=== PATIENT | female | born 1980 | race Caucasian/White ===

== ENCOUNTER 2018-01-12 08:03 | Day surgery (SDC) | payer BC ==
[~2018-01-12 08:03] MED LIST: Sodium Chloride 0.9% 10 ML Syringe FLUSH PRN; Sodium Chloride 0.9% 2.5 ML Syringe FLUSH PRN; ceFAZolin 2 GM in Premix Bag 1 BAG IV ONE
[2018-01-12] MEDS ORDERED: Scopolamine 1.5 MG Transdermal Patch TRDERM PRN (09:38)
--- NOTE | 2018-01-12 09:38 | PCM.PREANE ---
Preanesthetic Assessment - Anesthesia/Transfusion/Family Hx Other Type of Anesthesia Reaction Comment: "N&V after lap lydia" Family History of Anesthesia Reaction: No Transfusion History: No Prior Transfusion(s) Intubation History: Unknown - Review of Systems General: No Symptoms Pulmonary: No Symptoms Cardiovascular: No Symptoms Gastrointestinal: No Symptoms Neurological: No Symptoms Other: Reports: None - Physical Assessment NPO Status Date: 01/11/18 NPO Status Time: 21:00 O2 Sat by Pulse Oximetry: 98 Respiratory Rate: 16 Vital Signs: Last Vital Signs Temp 36.6 C 01/12/18 09:00 Pulse 68 01/12/18 09:00 Resp 16 01/12/18 09:00 BP 113/68 01/12/18 09:00 Pulse Ox 98 01/12/18 09:00 Height: 1.62 m Weight: 82.554 kg ASA Class: 2 Mental Status: Alert & Oriented x3 Airway Class: Mallampati = 2 Dentition: Reports: Normal Dentition Thyro-Mental Finger Breadths: 3 Mouth Opening Finger Breadths: 2 ROM/Head Extension: Full Lungs: Clear to Auscultation, Normal Respiratory Effort Cardiovascular: Regular Rate, Regular Rhythm - Allergies Allergies/Adverse Reactions: Allergies Allergy/AdvReac Type Severity Reaction Status Date / Time No Known Allergies Allergy Verified 01/07/18 13:06 - Blood Blood Available: No - Anesthesia Plan Pre-Op Medication Ordered: None - Acknowledgements Anesthesia Type Planned: General Anesthesia Pt an Appropriate Candidate for the Planned Anesthesia: Yes Alternatives and Risks of Anesthesia Discussed w Pt/Guardian: Yes Pt/Guardian Understands and Agrees with Anesthesia Plan: Yes PreAnesthesia Questionnaire HEENT History: Reports: Other (See Below) Other HEENT History: wears glasses Cardiovascular History: Reports: Other (See Below) Other Cardiovascular History: HTN in the past before loosing weight Gastrointestinal History: Reports: GERD, Other (See Below) Other Gastrointestinal History: occasional heartburn Genitourinary History: Reports: None [employer]ING [employer] History: Reports: Polycystic Ovaries, Neurological History: Reports: Concussion Psychiatric History: Reports: Anxiety, Depression Endocrine/Metabolic History: Reports: Obesity/BMI 30+ - Past Surgical History Head Surgeries/Procedures: Reports: None GI Surgical History: Reports: Bariatric Procedure, Cholecystectomy, Other (See Below) Other GI Surgeries/Procedures: gastric sleeve Female Surgical History: Reports: Other (See Below) Other Female Surgeries/Procedures: ESSURE - SUBSTANCE USE Smoking Status *Q: Never Smoker Recreational Drug Use History: No - HOME MEDS Home Medications: Home Meds Acetaminophen [Tylenol] 1 - 2 tab PO ASDIRECTED PRN 01/07/18 [History] Omeprazole 20 mg PO ASDIRECTED PRN 01/07/18 [History] Vilazodone Hydrochloride [Viibryd] 40 mg PO DAILY 01/07/18 [History] busPIRone [Buspar] 19 mg PO BID 01/07/18 [History] - CURRENT (IN HOUSE) MEDS Current Meds: Current Medications Lactated Ringer's (Ringers, Lactated) 1,000 mls @ 125 mls/hr IV ASDIRECTED VICENTE Sodium Chloride (Saline Flush) 10 ml FLUSH ASDIRECTED PRN PRN Reason: Keep Vein Open Sodium Chloride (Saline Flush) 2.5 ml FLUSH ASDIRECTED PRN PRN Reason: Keep Vein Open Discontinued Medications Cefazolin Sodium/Dextrose 2 gm (/ Premix) 50 mls @ 100 mls/hr IV ONETIME ONE Stop: 01/12/18 05:29
[2018-01-12] MEDS ORDERED: fentaNYL 250 MCG/5 ML SDV ONE (09:40)
[2018-01-12] MEDS ORDERED: Lidocaine 2% 5 ML SDV ONE (09:40)
[2018-01-12] MEDS ORDERED: Propofol 200 MG/20 ML SDV ONE ×2 (09:40→15:09)
[2018-01-12] MEDS ORDERED: fentaNYL 100 MCG/2 ML SDV ONE ×2 (09:40→15:18)
[2018-01-12] MEDS ORDERED: Midazolam 1 MG/ML 2 ML SDV ONE (09:40)
[2018-01-12] MEDS ORDERED: Lactated Ringers 1,000 ML IV SCH (09:45)
[2018-01-12] MEDS ORDERED: Ketorolac 30 MG/ML SDV ONE (09:46)
[2018-01-12] MEDS ORDERED: Ondansetron 4 MG/2 ML SDV ONE (09:46)
[2018-01-12] MEDS ORDERED: Neostigmine Methylsulfate 1 MG/ML 5 ML Syringe ONE (09:46)
[2018-01-12] MEDS ORDERED: Rocuronium 10 MG/ML 10 ML Syringe ONE (09:46)
[2018-01-12] MEDS ORDERED: Glycopyrrolate 0.2 MG/ML SDV ONE (09:46)
[2018-01-12] MEDS ORDERED: Methylene Blue 50 MG/10 ML Ampule ONE (10:51)
[2018-01-12] MEDS ORDERED: Bupivacaine 0.25% 10 ML SDV ONE (10:51)
[2018-01-12] MEDS ORDERED: Fluorescein 5 ML Vial ONE (14:37)
[2018-01-12] MEDS ORDERED: Sugammadex Sodium 200 MG/2 ML VIAL ONE (14:37)
[2018-01-12] MEDS ORDERED: HYDROmorphone 2 MG/ML Syringe IVPUSH ONE (14:57)
[2018-01-12] MEDS ORDERED: fentaNYL 100 MCG/2 ML SDV IVPUSH PRN (14:57)
[2018-01-12] MEDS ORDERED: Furosemide 40 MG/4 ML VIAL ONE (14:59)
--- NOTE | 2018-01-12 16:10 | PCM.OPNOTE ---
- General Post-Op/Procedure Note Date of Surgery/Procedure: 01/12/18 Operative Procedure(s): LAVH/bilateral salpingectomy/cystoscopy Findings: 8-10 week uterus , boggy. Essure coils in fallopian tubes/cornua. Normal appearing ovaries. Bilateral patent ureters Pre Op Diagnosis: Menorrhagia. Dysmenorrhea Post-Op Diagnosis: Same Anesthesia Technique: General ET Tube Primary Surgeon: Laura Ochoa Marine Chronometer Assembler: Selena Ramires Pathology: uterus, cervix, bilateral fallopian tubes with essure coils Fluid Replacement, Intraop: 2,000 EBL in mLs: 100 Complications: none known Condition: Good Free Text/Narrative:: Dictation [id number]
[2018-01-12] MEDS ORDERED: Ondansetron 4 MG/2 ML SDV IVPUSH PRN (16:11)
[2018-01-12] MEDS ORDERED: Ketorolac 30 MG/ML SDV IVPUSH PRN (16:11)
[2018-01-12] MEDS ORDERED: Acetaminophen/oxyCODONE 325-5 MG Tab PO PRN ×2 (16:11)
[2018-01-12] MEDS ORDERED: Aluminum Hydroxide/Magnesium Hydroxide/Simethicone Susp 30 ML Cup PO PRN (16:11)
[2018-01-12] MEDS ORDERED: Ketorolac 30 MG/ML SDV IVPUSH ONE (16:11)
[2018-01-12] MEDS ORDERED: Promethazine 25 MG/ML SDV IM PRN (16:11)
[2018-01-12] MEDS ORDERED: Morphine 4 MG/ML Syringe IVPUSH PRN (16:11)
--- NOTE | 2018-01-12 17:04 | PCM.POSTAN ---
POST ANESTHESIA ASSESSMENT - MENTAL STATUS Mental Status: Alert, Oriented - VITAL SIGNS Pulse Rate: 69 SaO2: 98 (Room Air ) Resp Rate: 19 Blood Pressure: 133/79 - RESPIRATORY Respiratory Status: Respiratory Rate WNL, Airway Patent, O2 Saturation Stable - CARDIOVASCULAR CV Status: Pulse Rate WNL, Blood Pressure Stable - GASTROINTESTINAL GI Status: No Symptoms - PAIN Pain Score: 3 - POST OP HYDRATION Hydration Status: Adequate & Stable - OBSERVATIONS Free Text/Narrative:: Stable and comfortable SaO2 98 to 100 on room past 15 minutes May have supplemental Oxygen and SaO2 monitoring on nursing unit if needed
[2018-01-12] MEDS: Docusate Sodium 100 MG Cap PO SCH (20:18)
--- NOTE | 2018-01-12 20:48 | OR ---
SURGEON: Laura Ochoa M.D. DATE OF PROCEDURE: 01/12/2018 PREOPERATIVE DIAGNOSES: 1. Menorrhagia. 2. Dysmenorrhea. POSTOPERATIVE DIAGNOSES: 1. Menorrhagia. 2. Dysmenorrhea. PROCEDURES: Laparoscopic-assisted vaginal hysterectomy, bilateral salpingectomy, cystoscopy. LOGISTICS OPERATIONS DIRECTOR: Selena Ramires M.D. ANESTHESIA: General endotracheal anesthesia. ESTIMATED BLOOD LOSS: 100 mL. FLUIDS: 2000 mL of crystalloid. COMPLICATIONS: None known. FINDINGS: Approximately 8 to 10 week size boggy uterus. Normal-appearing ovaries. Bilateral patent ureters. Essure coils within fallopian tubes. DISPOSITION: The patient to PACU. SPECIMENS: Pathology. PROCEDURE IN DETAIL: Kayla is a 37-year-old female, who has ongoing difficulties with menorrhagia. She no longer desires to have to use hormone therapy in order to control her symptoms. She is most interested in pursuing definitive surgical intervention. The risks of the procedure were discussed. Proper consent obtained. We opted to do bilateral salpingectomies at the time of hysterectomy. Given she still has Essure coils in place for her permanent control, we will ensure removal of the coils completely at the time of the procedure. The patient was taken to the operating room where she underwent general anesthesia, was placed in modified dorsal lithotomy position, prepped and draped in the usual aseptic manner in the usual sterile fashion. SCDs to lower extremities. Hall to gravity. Received Ancef prophylactically. Time-out was performed. After being prepped and draped in sterile fashion, speculum was introduced into vagina. The anterior lip of cervix was grasped with an Allis clamp and uterine HUMI manipulator was gently introduced into the uterine cavity. The balloon was insufflated. All vaginal instruments were removed except for the Daksha manipulator. Gloves were now changed. Attention turned abdominally. Infraumbilically, 0.25% Marcaine was utilized to anesthetize the region. Please see total amount of local dispensed in nurse's note. Infraumbilical midline 5 mm incision was created, anterior abdominal wall tented upward. A Veress needle was gently introduced. Saline hanging drop test was performed and pneumoperitoneum was achieved. The Veress needle was removed. A 5 mm trocar was introduced. Laparoscope was introduced. Peritoneal contents were identified. The right and left lower quadrants now had trocars placed under direct visualization after prepping the region with 0.25% Marcaine creating 5 mm skin incisions and introducing 5 mm trocars. The uterus was mobile. Ovaries appeared normal. The left fallopian tube was isolated with a grasper and the salpingectomy was performed up to the level of the cornua. Initial utero tubo-ovarian pedicle was able to be secured with LigaSure, cauterized, and then transected. In a similar fashion for the patient's right side, the salpingectomy was performed at the level of cornua and then a single pedicle involving the utero tubo-ovarian pedicle was able to be secured with LigaSure, cauterized, and transected before. We will be initiating the hysterectomy portion. The pelvic sidewalls were closely inspected and ureters were seen and peristalsing well away from operative field. Along the midline now, the LigaSure was introduced in the infraumbilical port and the pedicles were secured incorporating the broad ligament with the round ligament, base of the broad ligament, and cardinal ligaments on either side. At this point, was able to gently develop an anterior peritoneal flap along the uterovesical reflection in order to cauterize and cut along with the peritoneum and mobilize the bladder away from the lower uterine segment of cervix. Further pedicle on either side incorporating the base of the cardinal ligament was able to be secured, cauterized, and transected. The pelvis was irrigated, suction dried, and attention was now turned vaginally. All laparoscopic instruments were removed. Pneumoperitoneum was released. Attention was turned vaginally. A weighted speculum and sidewall retractors were now placed. After the uterine HUMI manipulator was gently removed, the cervix was grasped with Josefina clamp and cauterized with Bovie cautery anteriorly and posteriorly overlying mucosa, was dissected away from underlying peritoneum bluntly. The posterior peritoneum was tented downward and entered sharply. Longer weighted speculum was placed anteriorly using Metzenbaum scissors. The anterior cul-de-sac was gently entered, and the Kena was placed to mobilize the bladder away from the operative field. Using Daksha clamps, the pedicle was secured on either side, transected, and suture ligated with a 2-0 Vicryl. Further pedicle on either side was able to be secured, transected, and suture ligated. At this juncture, the uterus and bilateral fallopian tubes with Essure coils were able to be removed completely. technical asst to pathology. The pedicles were closely inspected, found to be hemostatic overall. The vaginal mucosa was now plicated to the uterosacral ligament on either side using the 2-0 Vicryl uterosacral pedicle suture. The cuff was closed using 0 Vicryl in continuous running locked fashion. The cuff in line inspected and found to be hemostatic. The Hall catheter balloon was desufflated, though catheter was removed. IV fluorescein and Lasix were now introduced. The cystoscope was introduced. Some of the bladder was visualized, found to be in intact. The trigone was now inspected. The ureteral orifice able to be identified. Fluorescein-dyed urine seen streaming for both of them helping to ensure ureteral patency. The bladder was now drained. Hall catheter was replaced. The cuff line was inspected and found to be hemostatic. Gloves changed. Attention turned abdominally. Pneumoperitoneum was once again achieved. Laparoscope was introduced. The bowels mobilized away from the pelvis in order to inspect the pedicles. The pedicles are found to be hemostatic except for one region along just above the right uterosacral ligament. The peritoneum was oozing at this line; therefore, was cauterized with LigaSure. Hemostasis thereafter evident. Pelvis once again copiously irrigated and suction dried. Relief pressure decreased to 5 mm, and hemostasis found to be present. The pneumoperitoneum was now released. The laparoscopic incisions were removed. The right and left lower quadrant trocars removed under direct visualization. The laparoscope and infraumbilical trocar now removed also. The skin edges were reapproximated using 3-0 Monocryl in subcuticular fashion after releasing much of the pneumoperitoneum as possible. There was noted to be a small defect in the vaginal cuff. This was plicated with a simple [id number] suture of 2-0 Vicryl. Hemostasis thereafter evident and felt the defect was nicely reduced. Sponge, instrument, needle counts were correct x2. The patient has tolerated the procedure well overall. She will go to PACU in stable condition. MACARIO / MACY /[id number]
[2018-01-13 05:29] LABS: CHLORIDE,CL 102 mmol/L (98-107); SODIUM,NA 137 mmol/L (136-145)
--- NOTE | 2018-01-13 06:53 | PCM48HPAN ---
Post Anesthesia Note - EVALUATION WITHIN 48HRS OF ANESTHETIC Vital Signs in Normal Range: Yes Patient Participated in Evaluation: Yes Respiratory Function Stable: Yes Airway Patent: Yes Cardiovascular Function Stable: Yes Hydration Status Stable: Yes Pain Control Satisfactory: Yes Nausea and Vomiting Control Satisfactory: Yes Mental Status Recovered: Yes Pulse Rate: 69 Resp Rate: 98 Blood Pressure: 133/79
--- NOTE | 2018-01-13 08:02 | PCM.PN ---
- General Info Date of Service: 01/13/18 Functional Status: Reports: Pain Controlled, Tolerating Diet, Ambulating - Review of Systems General: Reports: Fatigue. Denies: Fever Pulmonary: Denies: Shortness of Breath Cardiovascular: Denies: Chest Pain, Palpitations, Lightheadedness Gastrointestinal: Reports: Abdominal Pain (from laparoscopy/gas pain-- controlled with pain meds) Genitourinary: Denies: Flank Pain Skin: Reports: No Symptoms Neurological: Denies: Confusion, Headache Psychiatric: Reports: No Symptoms - Patient Data Vitals - Most Recent: Last Vital Signs Temp 37.1 C 01/13/18 07:17 Pulse 85 01/13/18 07:17 Resp 18 01/13/18 07:17 BP 133/79 01/13/18 06:53 Pulse Ox 96 01/13/18 07:17 Weight - Most Recent: 82.554 kg I&O - Last 24 Hours: Intake & Output 01/12/18 01/13/18 01/13/18 22:59 06:59 14:59 Intake Total 5499 300 Output Total 520 1000 Balance 4979 -700 Lab Results Last 24 Hours: Laboratory Results - last 24 hr 01/12/18 01/12/18 01/12/18 Range/Units 09:26 09:26 09:26 WBC 7.11 (4.0-11.0) K/uL RBC 4.46 (4.30-5.90) M/uL Hgb 11.8 L (12.0-16.0) g/dL Hct 37.0 (36.0-46.0) % MCV 83.0 (80.0-98.0) fL MCH 26.5 L (27.0-32.0) pg MCHC 31.9 (31.0-37.0) g/dL RDW Std Deviation 41.7 (28.0-62.0) fl RDW Coeff of Mendez 14 (11.0-15.0) % Plt Count 284 (150-400) K/uL MPV 10.30 (7.40-12.00) fL Neut % (Auto) (48.0-80.0) % Lymph % (Auto) (16.0-40.0) % [place] % (Auto) (0.0-15.0) % Eos % (Auto) (0.0-7.0) % Baso % (Auto) (0.0-1.5) % Neut # (Auto) (1.4-5.7) K/uL Lymph # (Auto) (0.6-2.4) K/uL [place] # (Auto) (0.0-0.8) K/uL Eos # (Auto) (0.0-0.7) K/uL Baso # (Auto) (0.0-0.1) K/uL Nucleated RBC % 0.0 /100WBC Nucleated RBCs # 0 K/uL Sodium 143 (136-145) mmol/L Potassium 4.2 (3.5-5.1) mmol/L Chloride 107 (98-107) mmol/L Carbon Dioxide 30.0 (21.0-32.0) mmol/L BUN 15 (7.0-18.0) mg/dL Creatinine 1.1 H (0.6-1.0) mg/dL Est Cr Clr Drug Dosing 59.83 mL/min Estimated GFR (MDRD) 55.9 ml/min Glucose 91 (74-106) mg/dL Calcium 8.8 (8.5-10.1) mg/dL HCG, Qual NEGATIVE (NEG) Blood Type Antibody Screen 01/12/18 01/13/18 01/13/18 Range/Units 09:26 04:55 04:55 WBC 11.35 H (4.0-11.0) K/uL RBC 3.82 L (4.30-5.90) M/uL Hgb 10.2 L (12.0-16.0) g/dL Hct 31.2 L (36.0-46.0) % MCV 81.7 (80.0-98.0) fL MCH 26.7 L (27.0-32.0) pg MCHC 32.7 (31.0-37.0) g/dL RDW Std Deviation 40.6 (28.0-62.0) fl RDW Coeff of Mendez 14 (11.0-15.0) % Plt Count 260 (150-400) K/uL MPV 10.20 (7.40-12.00) fL Neut % (Auto) 77.5 (48.0-80.0) % Lymph % (Auto) 15.7 L (16.0-40.0) % [place] % (Auto) 6.7 (0.0-15.0) % Eos % (Auto) 0.0 (0.0-7.0) % Baso % (Auto) 0.1 (0.0-1.5) % Neut # (Auto) 8.8 H (1.4-5.7) K/uL Lymph # (Auto) 1.8 (0.6-2.4) K/uL [place] # (Auto) 0.8 (0.0-0.8) K/uL Eos # (Auto) 0.0 (0.0-0.7) K/uL Baso # (Auto) 0.0 (0.0-0.1) K/uL Nucleated RBC % 0.0 /100WBC Nucleated RBCs # 0 K/uL Sodium 137 (136-145) mmol/L Potassium 4.1 (3.5-5.1) mmol/L Chloride 102 (98-107) mmol/L Carbon Dioxide 29.4 (21.0-32.0) mmol/L BUN 11 (7.0-18.0) mg/dL Creatinine 0.9 (0.6-1.0) mg/dL Est Cr Clr Drug Dosing 73.13 mL/min Estimated GFR (MDRD) > 60.0 ml/min Glucose 113 H (74-106) mg/dL Calcium 8.5 (8.5-10.1) mg/dL HCG, Qual (NEG) Blood Type A NEGATIVE Antibody Screen NEGATIVE Med Orders - Current: Current Medications Al Hydroxide/Mg Hydroxide (Mag-Al Plus) 30 ml PO Q4H PRN PRN Reason: Indigestion Docusate Sodium (Colace) 100 mg PO BID [facility] Last Admin: 01/12/18 20:18 Dose: 100 mg Fentanyl (Sublimaze) 50 mcg IVPUSH Q5M PRN PRN Reason: Pain (severe 7-10) Stop: 01/13/18 14:57 Lactated Ringer's (Ringers, Lactated) 1,000 mls @ 125 mls/hr IV ASDIRECTED [facility] Last Admin: 01/12/18 09:15 Dose: 125 mls/hr Ketorolac Tromethamine (Toradol) 30 mg IVPUSH Q6H PRN PRN Reason: Pain (severe 7-10) Stop: 01/17/18 16:11 Morphine Sulfate (Morphine) 4 mg IVPUSH Q2H PRN PRN Reason: Pain (severe 7-10) Ondansetron HCl (Zofran) 4 mg IVPUSH Q6H PRN PRN Reason: Nausea/Vomiting Oxycodone/Acetaminophen (Percocet 325-5 Mg) 1 tab PO Q4H PRN PRN Reason: Pain (moderate 4-6) Oxycodone/Acetaminophen (Percocet 325-5 Mg) 2 tab PO Q4H PRN PRN Reason: Pain (moderate 4-6) Last Admin: 01/12/18 20:18 Dose: 2 tab Promethazine HCl (Phenergan) 25 mg IM Q6H PRN PRN Reason: Nausea/Vomiting Scopolamine (Transderm-Scop) 1.5 mg TRDERM Q72H PRN PRN Reason: Nausea Last Admin: 01/12/18 09:51 Dose: 1.5 mg Sodium Chloride (Saline Flush) 10 ml FLUSH ASDIRECTED PRN PRN Reason: Keep Vein Open Sodium Chloride (Saline Flush) 2.5 ml FLUSH ASDIRECTED PRN PRN Reason: Keep Vein Open Discontinued Medications Bupivacaine HCl (Sensorcaine-Mpf 0.25%) Confirm Administered Dose 20 ml .ROUTE .STK-MED ONE Stop: 01/12/18 10:52 Fentanyl (Sublimaze) Confirm Administered Dose 100 mcg .ROUTE .STK-MED ONE Stop: 01/12/18 09:41 Fentanyl (Sublimaze) Confirm Administered Dose 250 mcg .ROUTE .STK-MED ONE Stop: 01/12/18 09:41 Fentanyl (Sublimaze) Confirm Administered Dose 100 mcg .ROUTE .STK-MED ONE Stop: 01/12/18 15:19 Fluorescein Sodium (Ak-Fluor) Confirm Administered Dose 5 ml .ROUTE .STK-MED ONE Stop: 01/12/18 14:38 Furosemide (Lasix) Confirm Administered Dose 40 mg .ROUTE .STK-MED ONE Stop: 01/12/18 15:00 Glycopyrrolate (Robinul) Confirm Administered Dose 0.6 mg .ROUTE .STK-MED ONE Stop: 01/12/18 09:47 Hydromorphone HCl (Dilaudid) 0 mg IVPUSH ONETIME ONE Stop: 01/12/18 14:58 Last Admin: 01/12/18 17:43 Dose: Not Given Cefazolin Sodium/Dextrose 2 gm (/ Premix) 50 mls @ 100 mls/hr IV ONETIME ONE Stop: 01/12/18 05:29 Last Admin: 01/12/18 17:43 Dose: Not Given Ketorolac Tromethamine (Toradol) Confirm Administered Dose 30 mg .ROUTE .STK- MED ONE Stop: 01/12/18 09:47 Ketorolac Tromethamine (Toradol) 30 mg IVPUSH ONETIME ONE Stop: 01/12/18 16:12 Last Admin: 01/12/18 17:43 Dose: Not Given Lidocaine (Xylocaine-Mpf 2%) Confirm Administered Dose 10 ml .ROUTE .STK-MED ONE Stop: 01/12/18 09:41 Methylene Blue (Provayblue) Confirm Administered Dose 50 mg .ROUTE .STK-MED ONE Stop: 01/12/18 10:52 Midazolam HCl (Versed 1 Mg/Ml) Confirm Administered Dose 2 mg .ROUTE .STK-MED ONE Stop: 01/12/18 09:41 Neostigmine Methylsulfate (Neostigmine) Confirm Administered Dose 5 mg .ROUTE .STK-MED ONE Stop: 01/12/18 09:47 Ondansetron HCl (Zofran) Confirm Administered Dose 8 mg .ROUTE .STK-MED ONE Stop: 01/12/18 09:47 Propofol (Diprivan 20 Ml) Confirm Administered Dose 400 mg .ROUTE .STK-MED ONE Stop: 01/12/18 09:41 Propofol (Diprivan 20 Ml) Confirm Administered Dose 200 mg .ROUTE .STK-MED ONE Stop: 01/12/18 15:10 Rocuronium [place] (Zemuron) Confirm Administered Dose 100 mg .ROUTE .STK-MED ONE Stop: 01/12/18 09:47 Sugammadex Sodium (Bridion) Confirm Administered Dose 400 mg .ROUTE .STK-MED ONE Stop: 01/12/18 14:38 - Exam General: Alert, Oriented Lungs: Normal Respiratory Effort Cardiovascular: Regular Rate, Regular Rhythm GI/Abdominal Exam: Normal Bowel Sounds, Soft Back Exam: No: CVA Tenderness (L), CVA Tenderness (R) Extremities: No: [place]'s Sign Skin: Warm, Dry, Intact Wound/Incisions: Healing Well, Dressing Dry and Intact Psy/Mental Status: Alert, Normal Affect - Problem List & Annotations (1) Menorrhagia SNOMED Code(s): 619840847 Code(s): N92.0 - EXCESSIVE AND FREQUENT MENSTRUATION WITH REGULAR CYCLE Status: Acute Current Visit: Yes - Problem List Review Problem List Initiated/Reviewed/Updated: Yes - My Orders Last 24 Hours: My Active Orders 01/12/18 16:11 Patient Status [ADT] Routine May Shower [RC] ASDIRECTED Notify Provider Intake and Out [RC] ASDIRECTED Notify Provider Vital Signs [RC] ASDIRECTED RT Incentive Spirometry [RC] Q2HWA Up With Assistance [RC] PER UNIT ROUTINE Up ad Yadi [RC] PER UNIT ROUTINE Urinary Catheter Removal [RC] Per Unit Routine Acetaminophen/oxyCODONE [Percocet 325-5 MG] 1 tab PO Q4H PRN Acetaminophen/oxyCODONE [Percocet 325-5 MG] 2 tab PO Q4H PRN Alum Hydrox/Mag Hydrox/Simeth [Mag-Al Plus] 30 ml PO Q4H PRN Ketorolac [Toradol] 30 mg IVPUSH Q6H PRN Morphine 4 mg IVPUSH Q2H PRN Ondansetron [Zofran] 4 mg IVPUSH Q6H PRN Promethazine [Phenergan] 25 mg IM Q6H PRN Peripheral IV Discontinue [OM.PC] Routine Sequential Compression Device [OM.PC] Per Unit Routine Resuscitation Status Routine 01/12/18 16:12 Ice Therapy [OM.PC] Per Unit Routine 01/12/18 21:00 Docusate Sodium [Colace] 100 mg PO BID 01/12/18 Dinner Regular Diet [DIET] 01/13/18 07:58 Ready for Discharge [RC] PER UNIT ROUTINE - Assessment Assessment:: POD 1 status post LAVH/bilateral salpingectomy/cystoscopy - Plan Plan:: Ambulate halls this am and monitor for voiding. Catheter just removed. Once able to achieve these goals, may discharge to home. Discharge instructions reviewed. Follow up at [facility] 2 and 6 weeks. Infection and bleeding warnings reviewed.
[2018-01-13] MEDS: Docusate Sodium 100 MG Cap PO SCH (09:04)
== END 2018-01-13 11:30 | disposition home or self-care (01) ==
LOC: MW.SDS 08:03 → MW.MS 17:35 → MW.SDS 01-13 11:30
PROVIDERS: ATTEND Obstetrics & Gynecology
DX: N80.0 Endometriosis of uterus (principal); N72 Inflammatory disease of cervix uteri; N87.9 Dysplasia of cervix uteri, unspecified; I10 Essential (primary) hypertension; E28.2 Polycystic ovarian syndrome; E66.9 Obesity, unspecified; Z68.31 Body mass index [BMI] 31.0-31.9, adult; F32.9 Major depressive disorder, single episode, unspecified; F41.9 Anxiety disorder, unspecified; Z79.899 Other long term (current) drug therapy
CPT/HCPCS: 36415; 58552; 80048; 84703; 85025; 85027; 86850; 86900; 86901; A9270; J1885; J1940; J2250; J2405; J3010; J3490; J7120; J2704